=== PATIENT | female | born 1950 | race Caucasian/White ===

== ENCOUNTER 2020-07-20 02:16 | Inpatient (IN) | payer BC, MEDICARE ==
[~2020-07-20] VITALS: Ht 165.1 cm; Wt 76.0 kg
[2020-07-20] VITALS (16 sets, daily range): BP systolic 86–138; BP diastolic 51–98
[2020-07-20] MEDS ORDERED: INFLUENZA VAX SCREEN BY RX. MC PRN (02:45)
[2020-07-20] MEDS ORDERED: PROPOFOL 100 ML IV PRN (03:15)
[2020-07-20 03:50] LABS: BASE EXCESS ABG -1 mmol/L (-3-3); HCO3 ABG 23 mmol/L (21-28); PCO2 ABG 36 mmHg (35-46); PO2 ABG 160 mmHg (65-108); SAT O2 ABG 99 % (92-99)
[2020-07-20 04:03] LABS: FIO2 ABG 40
[2020-07-20 08:23] LABS: BASE EXCESS ABG 1 mmol/L (-3-3); HCO3 ABG 25 mmol/L (21-28); PCO2 ABG 35 mmHg (35-46); PO2 ABG 155 mmHg (65-108); SAT O2 ABG 99 % (92-99)
[2020-07-20 08:34] LABS: FIO2 ABG 40
[2020-07-20 09:12] LABS: BASO # 0.1 x10^3/uL (0.0-0.2); BASO % 1 % (0-3); EOS # 0.1 x10^3/uL (0.0-0.7); EOS % 1 % (0-3); HEMATOCRIT 35.7 % (36.0-47.0); HEMOGLOBIN 11.8 g/dL (12.0-15.5); LYMPH # 2.2 x10^3/uL (1.0-4.8); LYMPH % 27 % (24-48); MEAN CORPUSCULAR HEMOGLOBIN 30 pg (25-35); MEAN CORPUSCULAR HGB CONC 33 g/dL (31-37); MEAN CORPUSCULAR VOLUME 90 fL (79-100); MONO # 0.7 x10^3/uL (0.0-1.1); MONO % 8 % (0-9); NEUT # 5.1 x10^3/uL (1.8-7.7); NEUT % 63 % (31-73); PLATELET COUNT 284 x10^3/uL (140-400); RED BLOOD COUNT 3.99 x10^6/uL (3.50-5.40); RED CELL DISTRIBUTION WIDTH 14.9 % (11.5-14.5); WHITE BLOOD COUNT 8.1 x10^3/uL (4.0-11.0)
[2020-07-20 09:25] LABS: CALCIUM 8.7 mg/dL (8.5-10.1); CREATININE 0.7 mg/dL (0.6-1.0); GFR 83.2; POTASSIUM 4.8 mmol/L (3.5-5.1)
[2020-07-20 09:32] LABS: ALBUMIN 3.3 g/dL (3.4-5.0); ALBUMIN/GLOBULIN RATIO 1.3 (1.0-1.7); TOTAL BILIRUBIN 0.3 mg/dL (0.2-1.0); TOTAL PROTEIN 5.9 g/dL (6.4-8.2)
--- NOTE | 2020-07-20 09:47 | HP ---
ADMIT DATE: 07/20/2020 HISTORY OF PRESENT ILLNESS: The patient is a 70-year-old female patient, who was brought to the Emergency Room of [facility] via EMS after being found unresponsive. She apparently was found lying in her kitchen and the bystanders called EMS. Her blood sugar was 125 mg prior to arrival, IV was established and the patient was given Narcan 2 mg IV x 2 doses prior to arrival with no improvement of her symptoms. On residential care officer arrival, she was not responsive and her oxygen saturation was mid 80s range. She was breathing spontaneously, but had a shallow respiration. Her Randolph coma scale was 3 on arrival. The patient was not responsive to noxious stimuli, did not have any gag reflex. The last known time well is about 5:00 p.m. when she somebody on the phone. No visible signs of injury or trauma. Her pupils on arrival were pinpoint, but equal. The patient was intubated and started on mechanical ventilation. She has had lab work and imaging studies including a CBC, which showed that she has normochromic normocytic anemia with normal white cell count and platelets. Her chemistry was also unremarkable and her blood sugar was 117. Her blood gases on arrival showed a pH of 7.30, pCO2 of 54, pO2 of 329, bicarbonate 26 and oxygen saturation was 100% on FiO2 of 90%. Urinalysis essentially showed large amount of rbc's, trace of leukocyte esterase, 11-20 wbc's, and moderate amount of bacteria. Her toxic screen was positive for benzodiazepine. The patient was transferred to [facility] to continue with mechanical ventilation and to consult the mat machine tender and the neurologist. PAST MEDICAL HISTORY: Unobtainable. PAST SURGICAL HISTORY: Unobtainable. ALLERGIES: Unknown. MEDICATIONS: Unknown at this time of this dictation. FAMILY HISTORY AND SOCIAL HISTORY: Unobtainable. PHYSICAL EXAMINATION: GENERAL: On arrival to the Emergency Room, she was unresponsive with pinpoint pupils and absent gag reflex. Maryanne coma scale was 3. She was obviously intubated, mechanically ventilated. On examining her, she was pale, but no jaundice, cyanosis or thyromegaly. No jugular venous distention. No limb edema. VITAL SIGNS: Her heart rate was 70, blood pressure was 158/88, temperature was 95.1, respiratory rate was 18, and oxygen saturation was 95%. HEAD, EYES, EARS, NOSE AND THROAT: Normocephalic, atraumatic. NECK: Supple. CARDIAC: Normal first and second heart sounds with no gallop or murmur. CHEST: Clear to auscultation. No crepitation or rhonchi. ABDOMEN: Scaphoid, soft, and nontender. NEUROLOGIC: She was Randolph coma scale 3 on arrival. No response to noxious stimuli. No gag reflex. Her arterial blood gases on arrival showed a pH of 7.29, pCO2 of 53, pO2 of 329, and bicarbonate 26. LABORATORY DATA: Showed a white cell count of 8500, hemoglobin 10, hematocrit 32, MCV 91, and platelet count 296,000. Her chemistry showed a serum sodium 138, potassium 4.6, chloride 103, bicarbonate 26, anion gap of 9, BUN 14, and creatinine 0.9. Estimated GFR was 62 mL per minute. Her glucose 117 and calcium was 8.7. Total bilirubin, AST, ALT, and alkaline phosphatase were normal. Total protein 6.2 and albumin 3.3. Her prothrombin time and INR are normal. Urinalysis showed the urine was yellow, hazy with a pH of 7.5, specific gravity 1.020, and small amount of protein. The urine was negative for glucose and ketones. There was large amount of blood, negative for nitrite and bilirubin, trace leukocyte esterase, more than 40 rbc's, 11-20 wbc's, and moderate amount of bacteria. Her toxic screen was negative for opiates, methadone, barbiturates, phencyclidine, amphetamine, methamphetamine and was negative also for cocaine, cannabinoids and alcohol, and was positive for benzodiazepine. ASSESSMENT AND PLAN: In summary, this is a 70-year-old female patient who was basically arrived comatose with a Randolph coma scale of 3. She was intubated and mechanically ventilated. Her chest x-ray showed appropriate position of the endotracheal and enteric tubes, low lung volumes, cannot exclude left basilar airspace disease. CT scan of the head and cervical spine showed that there is no acute intracranial hemorrhage. Jones white matter differentiation is maintained. No mass effect, midline shift or hydrocephalus. No acute abnormality seen to involve the scalp or imaged orbits. Intact calvarium. Partially imaged orogastric and endotracheal tubes. She had reversal of cervical lordosis centered at C5, severe discogenic arthrosis at C5-C6 more so than C4-C5 and C6-C7, grade 1 anterolisthesis of C4 on C5 that is presumably degenerative given the degree of facet degeneration at this level particularly in the left degenerative changes ____ interspace, osseous neural foramina encroachment most severe on the right at C5-C6. Central canal stenosis greatest at C5-C6 that is at least moderate to potentially severe. No acute fracture identified. No prevertebral or dorsal paraspinous hematoma to suggest occult osseous injury. Scattered calcified atherosclerosis and gas posterior to the left clavicle is likely iatrogenic from venipuncture. No apical pneumothorax. So, the patient was intubated, mechanically ventilated, transferred to [facility] ICU to continue mechanical ventilation. We will consult the mat machine tender as well as the neurologist. She apparently was given Narcan twice without any response and did receive 1 gram of IV ceftriaxone and a liter of normal saline. KAREEM FUENTES MD DR: CLIVE/charlene JOB#: [id number] / [id number]
--- NOTE | 2020-07-20 10:31 | RAD ---
Examination: CHEST AP ONLY History: Shortness of breath. Follow-up abnormal chest x-ray. Comparison: None. Findings: AP portable upright frontal view of the chest was obtained. Enteric tube terminates overlying stomach. Tracheal tube appears to terminate approximately 4.8 cm from the josefa. The cardiomediastinal silhouette is normal. Lungs are clear. There is no pneumothorax. No pleural effusion is appreciated. No acute bone abnormality. IMPRESSION: No acute cardiopulmonary process. Resolution of previously evident left basilar atelectasis. Electronically signed by: Lan Gonzalez MD (07/20/2020 10:28 AM) [id number]
--- NOTE | 2020-07-20 13:04 | PDOC2 ---
NEUROLOGY CONSULT Date of Service DOS: DATE: 07/20/20 TIME: 12:54 Reason for Consult Reason for Consult: Coma Referring Physician Referring Physician: Dr. Richardson Source Source: Caregiver (Daughter), Patient History of Present Illness History of Present Illness The patient is a 70-year-old right-handed female, last known well was 5 PM last night when she talked to a relative on the phone. Son tried to reach the patient about 8 PM and there was no response, patient's granddaughter found the patient unresponsive on the floor. Blood glucose was measured at 125. Granddaughter was a bmx rider, noticed low pulse rate and thready pulse. On commissary production supervisor arrival, she remained unresponsive, saturations in the mid 80%, r espirations shallow, pulse thready, Maryanne coma score was 3. They tried giving her Narcan without improvement. Patient was intubated in the [facility] emergency department and then transferred here. There is no history of stroke, seizure, or head injury. Patient is now extubated, bright and alert, free of pain, thinks that she fell because her knee gave out on her. She has been having trouble with the knee for several months. She does not know if she hit her head, basically has no memory except she remembers starting to fall. Past Medical History Cardiovascular: No pertinent hx (Denies hypertension or coronary disease) Musculoskeletal: Osteoarthritis (Knee problems) Endocrine: No pertinent hx (Denies diabetes) Past Surgical History Past Surgical History: No pertinent history Family History Family History: No pertinent hx Social History Social History , lives alone, no alcohol or tobacco Current Medications Current Medications Current Medications Info (FLU VACCINE SCREEN per RX) 1 each PRN DAILY PRN MC SEE COMMENTS; Start 07/20/20 at 02:45 Propofol 100 ml @ 1.253 mls/ hr CONT PRN IV SEE I/O RECORD Last administered on 07/20/20at 04:13; Start 07/20/20 at 03:15 Allergies Allergies: Coded Allergies: Unable to Assess (Unverified , 07/20/20) ROS Review of System Negative for fever, chills, weight loss, shortness of breath, chest pain, indigestion, hematochezia, melena, and dysuria. Full 14-point review of systems is negative. Physical Exam Physical Examination General: Well-developed, well-nourished white female in no acute distress HEENT: Normocephalic andatraumatic. Temporal arteriespulsatile and nontender. Neck: Supple without bruit, no meningismus Musculoskeletal: Stability:see neurologic. Gait exam:see neurologic. Tone:see neurologic.Strength:see neurologic. Neurological: Mental Status:intact, orientation, memory, attention span/concentration, language, fund of knowledge normal. Cranial Nerves:Pupils equal and reactive to light, extraocular movements areintact, visual marshall are full to confrontation. Facial sensation is normal. There is no facial asymmetry. Vestibulo-ocular reflex is intact. Palate elevates and tongue protrudes in midline. All other cranial related problems are negative except as mentioned before.Reflexes:2+ and symmetric with flexor plantar responses. Motor:5/5 strength with normal tone and bulk. Coordination:Finger-nose finger and [id number] testing are normal. Rapid alternating movements and fine finger movements are intact. Gait:Not tested. Sensory:Normal pinprick, vibration, light touch, proprioception. Vitals VITALS Vital Signs Date Time Temp Pulse Resp B/P (MAP) Pulse Ox O2 Delivery O2 Flow Rate FiO2 07/20/20 07:40 100 Ventilator 07/20/20 06:00 58 18 127/77 (94) 07/20/20 02:00 97.3 97.3 Labs Labs Laboratory Tests Test 07/20/20 03:27 07/20/20 07:40 07/20/20 08:50 O2 Saturation 99 % (92-99) 99 % (92-99) Arterial Blood pH 7.42 (7.35-7.45) 7.46 (7.35-7.45) Arterial Blood pCO2 at Patient Temp 36 mmHg (35-46) 35 mmHg (35-46) Arterial Blood pO2 at Patient Temp 160 mmHg (65-108) 155 mmHg (65-108) Arterial Blood HCO3 23 mmol/L (21-28) 25 mmol/L (21-28) Arterial Blood Base Excess -1 mmol/L (-3-3) 1 mmol/L (-3-3) FiO2 40 40 White Blood Count 8.1 x10^3/uL (4.0-11.0) Red Blood Count 3.99 x10^6/uL (3.50-5.40) Hemoglobin 11.8 g/dL (12.0-15.5) Hematocrit 35.7 % (36.0-47.0) Mean Corpuscular Volume 90 fL (79-100) Mean Corpuscular Hemoglobin 30 pg (25-35) Mean Corpuscular Hemoglobin Concent 33 g/dL (31-37) Red Cell Distribution Width 14.9 % (11.5-14.5) Platelet Count 284 x10^3/uL (140-400) Neutrophils (%) (Auto) 63 % (31-73) Lymphocytes (%) (Auto) 27 % (24-48) Monocytes (%) (Auto) 8 % (0-9) Eosinophils (%) (Auto) 1 % (0-3) Basophils (%) (Auto) 1 % (0-3) Neutrophils # (Auto) 5.1 x10^3/uL (1.8-7.7) Lymphocytes # (Auto) 2.2 x10^3/uL (1.0-4.8) Monocytes # (Auto) 0.7 x10^3/uL (0.0-1.1) Eosinophils # (Auto) 0.1 x10^3/uL (0.0-0.7) Basophils # (Auto) 0.1 x10^3/uL (0.0-0.2) Sodium Level 142 mmol/L (136-145) Potassium Level 4.8 mmol/L (3.5-5.1) Chloride Level 106 mmol/L (98-107) Carbon Dioxide Level 30 mmol/L (21-32) Anion Gap 6 (6-14) Blood Urea Nitrogen 12 mg/dL (7-20) Creatinine 0.7 mg/dL (0.6-1.0) Estimated GFR (Cockcroft-Gault) 83.2 BUN/Creatinine Ratio 17 (6-20) Glucose Level 80 mg/dL (70-99) Calcium Level 8.7 mg/dL (8.5-10.1) Total Bilirubin 0.3 mg/dL (0.2-1.0) Aspartate Amino Transf (AST/SGOT) 14 U/L (15-37) Alanine Aminotransferase (ALT/SGPT) 25 U/L (14-59) Alkaline Phosphatase 84 U/L (46-116) Total Protein 5.9 g/dL (6.4-8.2) Albumin 3.3 g/dL (3.4-5.0) Albumin/Globulin Ratio 1.3 (1.0-1.7) Laboratory Tests Test 07/20/20 03:27 07/20/20 07:40 07/20/20 08:50 O2 Saturation 99 % (92-99) 99 % (92-99) Arterial Blood pH 7.42 (7.35-7.45) 7.46 (7.35-7.45) Arterial Blood pCO2 at Patient Temp 36 mmHg (35-46) 35 mmHg (35-46) Arterial Blood pO2 at Patient Temp 160 mmHg (65-108) 155 mmHg (65-108) Arterial Blood HCO3 23 mmol/L (21-28) 25 mmol/L (21-28) Arterial Blood Base Excess -1 mmol/L (-3-3) 1 mmol/L (-3-3) FiO2 40 40 White Blood Count 8.1 x10^3/uL (4.0-11.0) Red Blood Count 3.99 x10^6/uL (3.50-5.40) Hemoglobin 11.8 g/dL (12.0-15.5) Hematocrit 35.7 % (36.0-47.0) Mean Corpuscular Volume 90 fL (79-100) Mean Corpuscular Hemoglobin 30 pg (25-35) Mean Corpuscular Hemoglobin Concent 33 g/dL (31-37) Red Cell Distribution Width 14.9 % (11.5-14.5) Platelet Count 284 x10^3/uL (140-400) Neutrophils (%) (Auto) 63 % (31-73) Lymphocytes (%) (Auto) 27 % (24-48) Monocytes (%) (Auto) 8 % (0-9) Eosinophils (%) (Auto) 1 % (0-3) Basophils (%) (Auto) 1 % (0-3) Neutrophils # (Auto) 5.1 x10^3/uL (1.8-7.7) Lymphocytes # (Auto) 2.2 x10^3/uL (1.0-4.8) Monocytes # (Auto) 0.7 x10^3/uL (0.0-1.1) Eosinophils # (Auto) 0.1 x10^3/uL (0.0-0.7) Basophils # (Auto) 0.1 x10^3/uL (0.0-0.2) Sodium Level 142 mmol/L (136-145) Potassium Level 4.8 mmol/L (3.5-5.1) Chloride Level 106 mmol/L (98-107) Carbon Dioxide Level 30 mmol/L (21-32) Anion Gap 6 (6-14) Blood Urea Nitrogen 12 mg/dL (7-20) Creatinine 0.7 mg/dL (0.6-1.0) Estimated GFR (Cockcroft-Gault) 83.2 BUN/Creatinine Ratio 17 (6-20) Glucose Level 80 mg/dL (70-99) Calcium Level 8.7 mg/dL (8.5-10.1) Total Bilirubin 0.3 mg/dL (0.2-1.0) Aspartate Amino Transf (AST/SGOT) 14 U/L (15-37) Alanine Aminotransferase (ALT/SGPT) 25 U/L (14-59) Alkaline Phosphatase 84 U/L (46-116) Total Protein 5.9 g/dL (6.4-8.2) Albumin 3.3 g/dL (3.4-5.0) Albumin/Globulin Ratio 1.3 (1.0-1.7) Test from [facility] 07/19/20 21:10 07/19/20 22:11 07/19/20 22:36 White Blood Count 8.5 x10^3/uL Red Blood Count 3.58 x10^6/uL Hemoglobin 10.3 g/dL Hematocrit 32.4 % Mean Corpuscular Volume 91 fL Mean Corpuscular Hemoglobin 29 pg Mean Corpuscular Hemoglobin Concent 32 g/dL Red Cell Distribution Width 15.1 % Platelet Count 296 x10^3/uL Neutrophils (%) (Auto) 63 % Lymphocytes (%) (Auto) 25 % Monocytes (%) (Auto) 8 % Eosinophils (%) (Auto) 3 % Basophils (%) (Auto) 1 % Neutrophils # (Auto) 5.4 x10^3uL Lymphocytes # (Auto) 2.1 x10^3/uL Monocytes # (Auto) 0.7 x10^3/uL Eosinophils # (Auto) 0.2 x10^3/uL Basophils # (Auto) 0.1 x10^3/uL Prothrombin Time 9.7 SEC Prothromb Time International Ratio 0.9 Blood Gas pH 7.30 Blood Gas PCO2 54 mmHg Blood Gas PO2 329 mmHg Blood Gas HCO3 26 mmol/L Arterial Bld O2 Saturation (Calc) 100 % FiO2 90 % Creatine Kinase 46 U/L Creatine Kinase MB (Mass) 1.0 ng/mL Creatine Kinase MB Relative Index % Troponin I Quantitative < 0.017 ng/mL [id number] Natriuretic Peptide 102 pg/mL Urine Collection Type Unknown Urine Color Yellow Urine Clarity Hazy Urine pH 7.5 Urine Specific Eleanor 1.020 Urine Protein 30 mg/dl Urine Glucose (UA) Neg mg/dL Urine Ketones (Stick) Neg mg/dL Urine Blood Large Urine Nitrite Neg Urine Bilirubin Neg Urine Urobilinogen Dipstick 0.2 mg/dL Urine Leukocyte Esterase Trace Urine RBC >40 /HPF Urine WBC 11-20 /HPF Urine Squamous Epithelial Cells Few /LPF Urine Bacteria Mod /HPF Urine Opiates Screen Neg Urine Methadone Screen Neg Urine Barbiturates Neg Urine Phencyclidine Screen Neg Urine Amphetamine/Methamphetamine Neg Urine Benzodiazepines Screen Pos Urine Cocaine Screen Neg Urine Cannabinoids Screen Neg Urine Ethyl Alcohol Neg Sodium Level 138 mmol/L Potassium Level 4.6 mmol/L Chloride Level 103 mmol/L Carbon Dioxide Level 26 mmol/L Anion Gap 9 Blood Urea Nitrogen 14 mg/dL Creatinine 0.9 mg/dL Estimated GFR (Cockcroft-Gault) 62.3 BUN/Creatinine Ratio 16 Glucose Level 117 mg/dL Calcium Level 8.7 mg/dL Total Bilirubin Pending Aspartate Amino Transf (AST/SGOT) Pending Alanine Aminotransferase (ALT/SGPT) Pending Alkaline Phosphatase Pending Total Protein Pending Albumin Pending Albumin/Globulin Ratio Pending Images Images CT head: No acute intracranial hemorrhage. Jones-white matter differentiation is maintained. No mass effect, midline shift or hydrocephalus. No acute abnormality seen to involve the scalp or imaged orbits. Intact calvarium. CT cervical spine: Partially imaged orogastric and endotracheal tubes. Reversal of cervical lordosis centered at C5. Severe discogenic arthrosis at C5-C6 more so than C4-C5 and C6-C7. Grade 1 anterolisthesis of C4 on C5 is presumably degenerative given the degree of facet degeneration at this level particularly on the left. Degenerative changes at the atlantodental interface. Osseous neural foraminal encroachment most severe on the right at C5-C6. Central canal stenosis is greatest at C5-C6 that is at least moderate to potentially severe. No acute fracture is identified. No prevertebral or dorsal paraspinous hematoma to suggest occult osseous injury. Scattered calcific atherosclerosis. Gas posterior to the left clavicle is likely iatrogenic from venipuncture. No apical pneumothorax. IMPRESSION: CT head: 1. No acute intracranial abnormality by CT. CT cervical spine: 1. No acute fracture. 2. Advanced multifactorial degenerative changes, as above, collectively greatest at C5-C6 where there is at least moderate to potentially severe central canal stenosis and right more so than left osseous neural foraminal stenosis. Assessment/Plan Assessment/Plan Impression: I do not find a direct neurological cause of this syncope with prolonged loss of consciousness, it sounds like her knee gave out on her and she may have hit her head causing a concussion. She did have hypotension and bradycardia, raising the possibility of a primary cardiac problem. I find no evidence that she had a stroke, transient ischemic attack, or seizure. Her neurological exam is normal now. Recommendations: No additional neurological studies, such as EEG, needed Cardiac work-up Fully discussed with the patient and her daughter. Thank you for letting me help with the patient's care. ISAURO FELICIANO MD Jul 20, 2020 13:04
[2020-07-20] MEDS: ENOXAPARIN 40 MG/0.4 ML SYRINGE. SQ SCH (14:00)
[2020-07-20] MEDS ORDERED: CONTRAST GIVEN. MC PRN (14:15)
[2020-07-20] MEDS ORDERED: IOHEXOL 350 MG/ML 100 ML VIAL. IV ONE (14:15)
--- NOTE | 2020-07-20 14:20 | CONS ---
DATE OF CONSULTATION: 07/20/2020 ATTENDING PHYSICIAN: Juliano Richardson MD REASON FOR CONSULTATION: The patient is seen in pulmonary consultation at the request of Dr. Richardson for respiratory failure, vent management. HISTORY OF PRESENT ILLNESS: The patient is a 70-year-old that was admitted at [facility] in [place] at 8:00 p.m. She was unresponsive. The patient's granddaughter found the patient unresponsive on the floor. Blood glucose was 125. The patient apparently had a very weak pulse. Upon project mgr arrival, she remained unresponsive, saturation of 80%, shallow breathing, [place] coma score was 3. They tried Narcan without significant improvement. She was intubated at [facility] and then transferred to [facility]. The patient, upon my evaluation, was intubated on pressure support. She was following commands, nodded yes to having the tube removed from her airway. She denied any chest pain or pressure. She has been seen by Neurology who recommended no additional neurological studies. Possibly the patient's decreased level of consciousness related to a concussion. Labs were reviewed. White count was normal. Arterial blood gas revealed a pH of 7.42, PaCO2 of 36, pO2 of 102. Electrolytes were noted. BUN and creatinine were noted. Imaging studies included a chest x-ray, which revealed no acute cardiopulmonary process. PAST MEDICAL HISTORY: Otherwise remarkable for osteoarthritis. PAST SURGICAL HISTORY: None. SOCIAL HISTORY: There is no history of alcoholism or tobacco use. REVIEW OF SYSTEMS: Unobtainable secondary to the patient's condition. PHYSICAL EXAMINATION: VITAL SIGNS: Stable. O2 saturation was greater than 92%. LUNGS: Clear. No wheezes. CARDIOVASCULAR: Regular rate and rhythm with S1 and S2. No S3. ABDOMEN: Soft, nontender, nondistended. EXTREMITIES: No clubbing, cyanosis or edema. LABORATORY DATA: Reviewed. White count was noted. Hemoglobin and hematocrit noted. Arterial blood gas was noted. Chest x-ray revealed no acute cardiopulmonary process. IMPRESSION: 1. Acute hypoxemic respiratory failure, etiology unclear. 2. Possible concussion. 3. Negative CT head revealed no acute intracranial process. 4. Negative cervical spine fracture. PLAN: 1. The patient did well on pressure support. We will proceed with extubation. 2. Complete workup with CT angiogram to rule out pulmonary embolism, my clinical suspicion is low. I do appreciate the privilege in sharing in the patient's care. APRIL PAEZ MD DR: AR/charlene JOB#: [id number] / [id number]
--- NOTE | 2020-07-20 15:31 | RAD ---
Examination: CT ANGIOGRAPHY CHEST History: RESP Failure / Spl. Instructions: INJ 100ML OMNI 350 / History: Comparison/Correlation: 07/20/2020 AP view of the chest Findings: Axial images of the chest were obtained following IV contrast according to pulmonary arteriography protocol. Sagittal and coronal reformatted images were provided. Maximum intensity projection images were provided. Thoracic aorta is grossly unremarkable. Pulmonary arterial vasculature are normal with no thromboembolic disease. Left costophrenic sulcus atelectasis is present. Linear discoid atelectasis at the lung bases also seen. A small hiatal hernia is present. No suspicious pulmonary nodule or mass. No enlarged thoracic lymph nodes. There is a 2.6 cm x 2 cm low-attenuation lesion in the left hepatic dome. Hounsfield units are slightly greater than 20. Cholelithiasis suspected. Right renal superior pole nonobstructive calyceal calculus measuring 0.5 cm diameter is present. Additional smaller calculus is present at the right renal superior pole measuring less than 0.3 cm diameter.. Right renal pelvis calculus is partially visualized measuring up to 1 cm diameter. Left renal superior pole 1 cm x 0.8 cm mildly complex density structure is present. This may represent hemorrhagic or proteinaceous cyst although more significant etiology is not excluded. Accessory right renal artery present. Impression: No PE. Mild discoid atelectasis. Nonobstructive right renal calculi. Left renal lesion which may represent complex cyst. Slightly high density left hepatic lobe cyst. Further evaluation with ultrasound exam should be considered. Cholelithiasis is suspected. PQRS Compliance Statement: One or more of the following individualized dose reduction techniques were utilized for this examination: 1. Automated exposure control 2. Adjustment of the mA and/or kV according to patient size 3. Use of iterative reconstruction technique Electronically signed by: Lan Gonzalez MD (07/20/2020 3:28 PM) [id number]
--- NOTE | 2020-07-20 15:34 | NUR ---
SS following for discharge planning. SS reviewed pt chart and discussed with pt RN. Pt is from home and is currently requiring oxygen. SS will continue to follow for discharge planning.
[2020-07-20] MEDS: IPRATRPIUM/ALBUTEROL 0.5/2.5MG 3 ML NEBU. NEB SCH ×2 (15:45→20:28)
[2020-07-20] MEDS: AMOXICILLIN/K CLAV 875/125MG TABLET. PO SCH (18:00)
--- NOTE | 2020-07-20 20:53 | NUR ---
Extubation trial well tolerated.O2 at 3 lNC w/o overt resp distress post ETT removal.Menation clear but recollection of events prior to admission escape her memory. To and ffrom Ct .Test neg for PE. OT/PT addressed and ordered. Able to transfer to stepdown unit w clear mentation. Daughter informed of transfer to second floor
[2020-07-20] MEDS: FAMOTIDINE 20 MG/2 ML VIAL IVP SCH (21:04)
[2020-07-21] VITALS (7 sets, daily range): BP systolic 133–196; BP diastolic 67–83
[2020-07-21] MEDS: IPRATRPIUM/ALBUTEROL 0.5/2.5MG 3 ML NEBU. NEB SCH ×4 (07:57→20:26)
[2020-07-21] MEDS: AMOXICILLIN/K CLAV 875/125MG TABLET. PO SCH ×2 (08:50→20:44)
[2020-07-21] MEDS: LACTOBACILLUS RHAMNOSUS GG 1 CAPSULE. PO SCH ×2 (08:50→20:44)
[2020-07-21] MEDS: FAMOTIDINE 20 MG/2 ML VIAL IVP SCH (08:51)
[2020-07-21] MEDS: ACETAMINOPHEN 325 MG TABLET. PO PRN (11:30)
--- NOTE | 2020-07-21 11:43 | PDOC ---
PULMONARY PROGRESS NOTES DATE: 07/21/20 TIME: 11:40 Subjective Patient was extubated on 07/20/2020 now on room air Denies any shortness of breath, chest pain or increased cough, reports a very mild nonproductive cough No overnight concerns from nursing Vitals Vital Signs Date Time Temp Pulse Resp B/P (MAP) Pulse Ox O2 Delivery O2 Flow Rate FiO2 07/21/20 11:00 98.0 72 20 182/79 (113) 95 Room Air 98.0 07/20/20 16:00 3.0 ROS: No Nausea, No Chest Pain, No Abdominal Pain, No Increase Cough General: Alert Lungs: Clear Cardiovascular: S1, S2 Abdomen: Soft, Non-tender Neuro Exam: Alert Extremities: No Edema Skin: Warm Labs Laboratory Tests Test 07/20/20 03:27 07/20/20 07:40 07/20/20 08:50 O2 Saturation 99 % (92-99) 99 % (92-99) Arterial Blood pH 7.42 (7.35-7.45) 7.46 (7.35-7.45) Arterial Blood pCO2 at Patient Temp 36 mmHg (35-46) 35 mmHg (35-46) Arterial Blood pO2 at Patient Temp 160 mmHg (65-108) 155 mmHg (65-108) Arterial Blood HCO3 23 mmol/L (21-28) 25 mmol/L (21-28) Arterial Blood Base Excess -1 mmol/L (-3-3) 1 mmol/L (-3-3) FiO2 40 40 White Blood Count 8.1 x10^3/uL (4.0-11.0) Red Blood Count 3.99 x10^6/uL (3.50-5.40) Hemoglobin 11.8 g/dL (12.0-15.5) Hematocrit 35.7 % (36.0-47.0) Mean Corpuscular Volume 90 fL (79-100) Mean Corpuscular Hemoglobin 30 pg (25-35) Mean Corpuscular Hemoglobin Concent 33 g/dL (31-37) Red Cell Distribution Width 14.9 % (11.5-14.5) Platelet Count 284 x10^3/uL (140-400) Neutrophils (%) (Auto) 63 % (31-73) Lymphocytes (%) (Auto) 27 % (24-48) Monocytes (%) (Auto) 8 % (0-9) Eosinophils (%) (Auto) 1 % (0-3) Basophils (%) (Auto) 1 % (0-3) Neutrophils # (Auto) 5.1 x10^3/uL (1.8-7.7) Lymphocytes # (Auto) 2.2 x10^3/uL (1.0-4.8) Monocytes # (Auto) 0.7 x10^3/uL (0.0-1.1) Eosinophils # (Auto) 0.1 x10^3/uL (0.0-0.7) Basophils # (Auto) 0.1 x10^3/uL (0.0-0.2) Sodium Level 142 mmol/L (136-145) Potassium Level 4.8 mmol/L (3.5-5.1) Chloride Level 106 mmol/L (98-107) Carbon Dioxide Level 30 mmol/L (21-32) Anion Gap 6 (6-14) Blood Urea Nitrogen 12 mg/dL (7-20) Creatinine 0.7 mg/dL (0.6-1.0) Estimated GFR (Cockcroft-Gault) 83.2 BUN/Creatinine Ratio 17 (6-20) Glucose Level 80 mg/dL (70-99) Calcium Level 8.7 mg/dL (8.5-10.1) Total Bilirubin 0.3 mg/dL (0.2-1.0) Aspartate Amino Transf (AST/SGOT) 14 U/L (15-37) Alanine Aminotransferase (ALT/SGPT) 25 U/L (14-59) Alkaline Phosphatase 84 U/L (46-116) Total Protein 5.9 g/dL (6.4-8.2) Albumin 3.3 g/dL (3.4-5.0) Albumin/Globulin Ratio 1.3 (1.0-1.7) Impression . IMPRESSION: 1. Acute hypoxemic respiratory failure, etiology unclear. 2. Possible concussion. 3. Negative CT head revealed no acute intracranial process. 4. Negative cervical spine fracture. Plan . PLAN: Supplemental oxygen as needed, currently on room air Symptomatic treatment of cough Is at bedside Continue Augmentin About a bed as tolerated W/ PT/OT CTA of chest reviewed negative for pulmonary embolism Bronchodilators as needed DVT/GI prophylaxis Patient could discharge in the next 24 to 48 hours, we will sign off at this time as the patient is stable from a pulmonary standpoint please call with any questions or concerns thank you APRIL PAEZ MD Jul 21, 2020 11:43
--- NOTE | 2020-07-21 12:27 | PN ---
DATE: 07/21/2020 SUBJECTIVE: The patient is resting, slightly propped up in bed, in no apparent respiratory distress. She is awake, alert. On questioning her, she denied any complaints. She apparently lives alone, but her granddaughter visits her very often and she is the one who found her on the floor, bradycardic and hypotensive. She cannot remember exactly the circumstances of her fall and loss of consciousness, but said that her knee has been bothering her for the last 3 weeks and has been giving way and she has also some pain in his right knee that comes and goes. She has no significant medical problem. She follows at the outpatient clinic in [facility], Leigh Ann Freeman is her primary care physician and she is on gabapentin, naproxen as well as tramadol. She said she took some tramadol on the day of her loss of consciousness. PHYSICAL EXAMINATION: GENERAL: When I examined her this morning, she looked well and was clearly in no apparent respiratory distress. She was somewhat pale, but no jaundice or cyanosis. No lymphadenopathy, no thyromegaly. No jugular venous distention. No limb edema. VITAL SIGNS: Her heart rate was 77, blood pressure was 168/76, temperature was 98.2, respiratory rate was 21 and oxygen saturation was 95%. HEAD, EYES, EARS, NOSE, AND THROAT: Normocephalic, atraumatic. NECK: Supple. HEART: Normal first and second heart sounds. No gallop or murmur. CHEST: Clear to auscultation. No crepitation or rhonchi. ABDOMEN: Distended, soft, nontender. No guarding or rigidity. No organomegaly. All hernial orifices are intact. Bowel sounds normal. NEUROLOGIC: She was awake, alert, responding appropriately. All her cranial nerves are intact. She moves her extremities without difficulty. She actually ambulates without assistance or assistive devices. Her intake over the last 24 hours was incompletely recorded. LABORATORY DATA: As of yesterday showed a white cell count of 8000, hemoglobin 12, hematocrit 36, MCV 90 and platelet count of 284,000. Her chemistry showed a serum sodium 142, potassium 4.8, chloride 106, bicarbonate 30, anion gap of 6, BUN 12, creatinine 0.7, estimated GFR was 83 mL per minute, glucose was 80, calcium was 8.7. Total bilirubin, AST, ALT, alkaline phosphatase were normal. Total protein was 5.9, albumin was 3.3. ASSESSMENT AND RECOMMENDATIONS: This is a 70-year-old female patient who was admitted with loss of consciousness and acute hypoxic respiratory failure, her Maryanne coma scale was 3 and therefore, she was unable to protect her airways and was intubated and mechanically ventilated. Narcan was given without any significant improvement. She was seen by Dr. Dickson who did not feel that the patient has any neurological explanation for her loss of consciousness and recommended further workup by the Cardiology perhaps some form of arrhythmias. We did consult the cardiology team. Meanwhile, I will arrange for her to have an x-ray of her right knee joint and consult Dr. Henderson for further evaluation and treatment. KAREEM FUENTES MD DR: CLIVE/charlene JOB#: [id number] / [id number]
--- NOTE | 2020-07-21 13:27 | PDOC2 ---
CONSULT Date of Consult Date of Consult DATE: 07/21/20 TIME: 13:23 Reason for Consult Reason for Consult: Patient was found nonresponsive. Referring Physician Referring Physician: Dr. Richardson Identification/Chief Complaint Chief Complaint Unresponsiveness Source Source: Chart review, Patient History of Present Illness Reason for Visit: The patient is a 70-year-old female who was found unresponsive at home yesterday. Paramedics were called. Patient was intubated by paramedics due to her nonresponsiveness. No report of chest pain was made. Lab tested positive for benzodiazepines. Patient was transported to [facility]. She was extubated overnight and this morning is resting comfortably in bed. She denies chest pain or shortness of breath. She responds appropriately to questions. She denies any history of coronary disease congestive heart failure or cardiac arrhythmias. CT scan of the head has shown no acute abnormalities. Chest CTA showed no PE. She has been reviewed by the neurology service as well as pulmonary. Past Medical History Cardiovascular: No pertinent hx (Denies hypertension or coronary disease) Musculoskeletal: Osteoarthritis (Knee problems) Endocrine: No pertinent hx (Denies diabetes) Past Surgical History Past Surgical History: No pertinent history Family History Family History: Hypertension Social History No ALCOHOL: none Current Medications Current Medications Current Medications Info (FLU VACCINE SCREEN per RX) 1 each PRN DAILY PRN MC SEE COMMENTS; Start 07/20/20 at 02:45; Status Cancel Propofol 100 ml @ 1.253 mls/ hr CONT PRN IV SEE I/O RECORD Last administered on 07/20/20at 04:13; Start 07/20/20 at 03:15; Stop 07/20/20 at 20:18; Status DC Enoxaparin Sodium (Lovenox 40mg Syringe) 40 mg Q24H SQ Last administered on 07/20/20at 14:00; Start 07/20/20 at 14:00 Famotidine (Pepcid Vial) 20 mg BID IVP Last administered on 07/21/20at 08:51; Start 07/20/20 at 21:00; Stop 07/21/20 at 12:00; Status DC Amoxicillin/ Clavulanate Potassium (Augmentin 875/ 125mg) 1 tab BID PO Last administered on 07/21/20at 08:50; Start 07/20/20 at 18:00 Albuterol/ Ipratropium (Duoneb) 3 ml RTQID NEB Last administered on 07/21/20at 11:45; Start 07/20/20 at 16:00 Iohexol (Omnipaque 350 Mg/ml) 100 ml 1X ONCE IV Last administered on 07/20/20at 14:15; Start 07/20/20 at 14:15; Stop 07/20/20 at 14:16; Status DC Info (CONTRAST GIVEN -- Rx MONITORING) 1 each PRN DAILY PRN MC SEE COMMENTS; Start 07/20/20 at 14:15; Stop 07/22/20 at 14:14 Influenza Virus Vaccine Quadrival (Fluzone Quad [id number] Syringe) 0.5 ml ONCE ONCE VAX IM ; Start 07/22/20 at 09:00; Stop 07/22/20 at 09:01 Lactobacillus Rhamnosus (Culturelle) 1 cap BID PO Last administered on 07/21/20at 08:50; Start 07/21/20 at 09:00 Famotidine (Pepcid) 20 mg BID PO ; Start 07/21/20 at 21:00 Acetaminophen (Tylenol) 650 mg PRN Q4HRS PRN PO PAIN Last administered on 07/21at 11:30; Start 07/21/20 at 11:00 Allergies Allergies: Coded Allergies: No Known Drug Allergies (Unverified , 07/21/20) ROS General: YES: Other (Episode of nonresponsiveness as above) Physical Exam General: No acute distress HEENT: Atraumatic Lungs: Clear to auscultation Heart: Regular rate Abdomen: Normal bowel sounds Vitals VITALS Vital Signs Date Time Temp Pulse Resp B/P (MAP) Pulse Ox O2 Delivery O2 Flow Rate FiO2 07/21/20 11:45 95 Room Air 07/21/20 11:00 98.0 72 20 182/79 (113) 98.0 07/20/20 16:00 3.0 Labs Labs Laboratory Tests Test 07/20/20 03:27 07/20/20 07:40 07/20/20 08:50 O2 Saturation 99 % (92-99) 99 % (92-99) Arterial Blood pH 7.42 (7.35-7.45) 7.46 (7.35-7.45) Arterial Blood pCO2 at Patient Temp 36 mmHg (35-46) 35 mmHg (35-46) Arterial Blood pO2 at Patient Temp 160 mmHg (65-108) 155 mmHg (65-108) Arterial Blood HCO3 23 mmol/L (21-28) 25 mmol/L (21-28) Arterial Blood Base Excess -1 mmol/L (-3-3) 1 mmol/L (-3-3) FiO2 40 40 White Blood Count 8.1 x10^3/uL (4.0-11.0) Red Blood Count 3.99 x10^6/uL (3.50-5.40) Hemoglobin 11.8 g/dL (12.0-15.5) Hematocrit 35.7 % (36.0-47.0) Mean Corpuscular Volume 90 fL (79-100) Mean Corpuscular Hemoglobin 30 pg (25-35) Mean Corpuscular Hemoglobin Concent 33 g/dL (31-37) Red Cell Distribution Width 14.9 % (11.5-14.5) Platelet Count 284 x10^3/uL (140-400) Neutrophils (%) (Auto) 63 % (31-73) Lymphocytes (%) (Auto) 27 % (24-48) Monocytes (%) (Auto) 8 % (0-9) Eosinophils (%) (Auto) 1 % (0-3) Basophils (%) (Auto) 1 % (0-3) Neutrophils # (Auto) 5.1 x10^3/uL (1.8-7.7) Lymphocytes # (Auto) 2.2 x10^3/uL (1.0-4.8) Monocytes # (Auto) 0.7 x10^3/uL (0.0-1.1) Eosinophils # (Auto) 0.1 x10^3/uL (0.0-0.7) Basophils # (Auto) 0.1 x10^3/uL (0.0-0.2) Sodium Level 142 mmol/L (136-145) Potassium Level 4.8 mmol/L (3.5-5.1) Chloride Level 106 mmol/L (98-107) Carbon Dioxide Level 30 mmol/L (21-32) Anion Gap 6 (6-14) Blood Urea Nitrogen 12 mg/dL (7-20) Creatinine 0.7 mg/dL (0.6-1.0) Estimated GFR (Cockcroft-Gault) 83.2 BUN/Creatinine Ratio 17 (6-20) Glucose Level 80 mg/dL (70-99) Calcium Level 8.7 mg/dL (8.5-10.1) Total Bilirubin 0.3 mg/dL (0.2-1.0) Aspartate Amino Transf (AST/SGOT) 14 U/L (15-37) Alanine Aminotransferase (ALT/SGPT) 25 U/L (14-59) Alkaline Phosphatase 84 U/L (46-116) Total Protein 5.9 g/dL (6.4-8.2) Albumin 3.3 g/dL (3.4-5.0) Albumin/Globulin Ratio 1.3 (1.0-1.7) Images Images Chest CTA and head CTA as above Assessment/Plan Assessment/Plan 1. Episodes of nonresponsiveness. Patient was intubated by paramedics. She was extubated overnight. She is now alert and oriented. Lab testing does show positive test for benzo but diazepam. No acute ischemic EKG changes and no arrhythmias overnight. No previous history of similar episodes. Patient has been seen by both pulmonology and neurology services. From a cardiac viewpoint no arrhythmias are present. We will continue on monitoring. We will check an echocardiogram. Will check cardiac enzymes. Patient will be a candidate for out patient monitoring. 2. Status post intubation. Patient denies shortness of breath at this time. SHARYN ATWOOD MD Jul 21, 2020 13:27
[2020-07-21] MEDS: ENOXAPARIN 40 MG/0.4 ML SYRINGE. SQ SCH (14:08)
--- NOTE | 2020-07-21 14:12 | RAD ---
Exam performed: Right knee 3 views. HISTORY: Pain and swelling, recurrent falls. DATE OF SERVICE: 07/21/2020. COMPARISON: None available FINDINGS: AP, lateral and oblique views of the right knee are obtained. There is narrowing of the patellofemoral joint with osteophytic spurring. The medial and lateral tibiofemoral joints of preserved. There is no acute fracture or dislocation. No soft tissue swelling or foreign body seen. IMPRESSION: Degenerative arthrosis involving the patellofemoral joint. No acute abnormality seen. Electronically signed by: Oralia Mejía MD (07/21/2020 2:09 PM) [id number]
[2020-07-21] MEDS ORDERED: NICOTINE 14MG PATCH. TD PRN (14:30)
--- NOTE | 2020-07-21 15:16 | PDOC ---
PROGRESS NOTES Date of Service DATE: 07/21/20 TIME: 15:15 Assessment I do not find a direct neurological cause of this syncope with prolonged loss of consciousness, it sounds like her knee gave out on her and she may have hit her head causing a concussion. She did have hypotension and bradycardia, raising the possibility of a primary cardiac problem. I find no evidence that she had a stroke, transient ischemic attack, or seizure. Her neurological exam is normal now. Plan No additional neurological studies, such as EEG, needed Cardiac work-up Subjective Feels fine now, no dizziness Objective Vital Signs Date Time Temp Pulse Resp B/P (MAP) Pulse Ox O2 Delivery O2 Flow Rate FiO2 07/21/20 11:45 95 Room Air 07/21/20 11:00 98.0 72 20 182/79 (113) 98.0 07/20/20 16:00 3.0 Intake and Output 07/21/20 07:00 Intake Total 675 ml Output Total 930 ml Balance -255 ml Intake Oral 650 ml IV Total 25 ml Output Urine Total 930 ml PHYSICAL EXAM Alert. Oriented to time, place and person. PERRL. EOMI. CN: no focal findings. Muscle tone: normal. Muscle strength: 5/5 DTR: 2+ Plantar reflex: flexor Gait: not examined in bed. Sensory exam: no abnormal findings. No cerebellar signs elicited. Review of Relevant I have reviewed the following items russ (where applicable) has been applied. Labs Laboratory Tests Test 07/20/20 03:27 07/20/20 07:40 07/20/20 08:50 O2 Saturation 99 % (92-99) 99 % (92-99) Arterial Blood pH 7.42 (7.35-7.45) 7.46 (7.35-7.45) Arterial Blood pCO2 at Patient Temp 36 mmHg (35-46) 35 mmHg (35-46) Arterial Blood pO2 at Patient Temp 160 mmHg (65-108) 155 mmHg (65-108) Arterial Blood HCO3 23 mmol/L (21-28) 25 mmol/L (21-28) Arterial Blood Base Excess -1 mmol/L (-3-3) 1 mmol/L (-3-3) FiO2 40 40 White Blood Count 8.1 x10^3/uL (4.0-11.0) Red Blood Count 3.99 x10^6/uL (3.50-5.40) Hemoglobin 11.8 g/dL (12.0-15.5) Hematocrit 35.7 % (36.0-47.0) Mean Corpuscular Volume 90 fL (79-100) Mean Corpuscular Hemoglobin 30 pg (25-35) Mean Corpuscular Hemoglobin Concent 33 g/dL (31-37) Red Cell Distribution Width 14.9 % (11.5-14.5) Platelet Count 284 x10^3/uL (140-400) Neutrophils (%) (Auto) 63 % (31-73) Lymphocytes (%) (Auto) 27 % (24-48) Monocytes (%) (Auto) 8 % (0-9) Eosinophils (%) (Auto) 1 % (0-3) Basophils (%) (Auto) 1 % (0-3) Neutrophils # (Auto) 5.1 x10^3/uL (1.8-7.7) Lymphocytes # (Auto) 2.2 x10^3/uL (1.0-4.8) Monocytes # (Auto) 0.7 x10^3/uL (0.0-1.1) Eosinophils # (Auto) 0.1 x10^3/uL (0.0-0.7) Basophils # (Auto) 0.1 x10^3/uL (0.0-0.2) Sodium Level 142 mmol/L (136-145) Potassium Level 4.8 mmol/L (3.5-5.1) Chloride Level 106 mmol/L (98-107) Carbon Dioxide Level 30 mmol/L (21-32) Anion Gap 6 (6-14) Blood Urea Nitrogen 12 mg/dL (7-20) Creatinine 0.7 mg/dL (0.6-1.0) Estimated GFR (Cockcroft-Gault) 83.2 BUN/Creatinine Ratio 17 (6-20) Glucose Level 80 mg/dL (70-99) Calcium Level 8.7 mg/dL (8.5-10.1) Total Bilirubin 0.3 mg/dL (0.2-1.0) Aspartate Amino Transf (AST/SGOT) 14 U/L (15-37) Alanine Aminotransferase (ALT/SGPT) 25 U/L (14-59) Alkaline Phosphatase 84 U/L (46-116) Total Protein 5.9 g/dL (6.4-8.2) Albumin 3.3 g/dL (3.4-5.0) Albumin/Globulin Ratio 1.3 (1.0-1.7) Medications Current Medications Info (FLU VACCINE SCREEN per RX) 1 each PRN DAILY PRN MC SEE COMMENTS; Start 07/20/20 at 02:45; Status Cancel Propofol 100 ml @ 1.253 mls/ hr CONT PRN IV SEE I/O RECORD Last administered on 07/20/20at 04:13; Start 07/20/20 at 03:15; Stop 07/20/20 at 20:18; Status DC Enoxaparin Sodium (Lovenox 40mg Syringe) 40 mg Q24H SQ Last administered on 07/21/20at 14:08; Start 07/20/20 at 14:00 Famotidine (Pepcid Vial) 20 mg BID IVP Last administered on 07/21/20at 08:51; Start 07/20/20 at 21:00; Stop 07/21/20 at 12:00; Status DC Amoxicillin/ Clavulanate Potassium (Augmentin 875/ 125mg) 1 tab BID PO Last administered on 07/21/20at 08:50; Start 07/20/20 at 18:00 Albuterol/ Ipratropium (Duoneb) 3 ml RTQID NEB Last administered on 07/21/20at 11:45; Start 07/20/20 at 16:00 Iohexol (Omnipaque 350 Mg/ml) 100 ml 1X ONCE IV Last administered on 07/20/20at 14:15; Start 07/20/20 at 14:15; Stop 07/20/20 at 14:16; Status DC Info (CONTRAST GIVEN -- Rx MONITORING) 1 each PRN DAILY PRN MC SEE COMMENTS; Start 07/20/20 at 14:15; Stop 07/22/20 at 14:14 Influenza Virus Vaccine Quadrival (Fluzone Quad Syringe) 0.5 ml ONCE ONCE VAX IM ; Start 07/22/20 at 09:00; Stop 07/22/20 at 09:01 Lactobacillus Rhamnosus (Culturelle) 1 cap BID PO Last administered on 07/21/20at 08:50; Start 07/21/20 at 09:00 Famotidine (Pepcid) 20 mg BID PO ; Start 07/21/20 at 21:00 Acetaminophen (Tylenol) 650 mg PRN Q4HRS PRN PO PAIN Last administered on 07/21/20at 11:30; Start 07/21/20 at 11:00 Nicotine (Nicoderm Cq 14mg) 1 patch PRN DAILY PRN TD SMOKING CESSATION; Start 07/21/20 at 14:30 Vitals/I & O Vital Sign - Last 24 Hours 07/20/20 07/20/20 07/20/20 07/20/20 15:45 16:00 16:00 19:50 Temp 97.9 98.9 97.9 98.9 Pulse 61 75 Resp 12 22 B/P (MAP) 132/69 (90) 138/65 (89) Pulse Ox 100 98 95 O2 Delivery Nasal Cannula Nasal Cannula Nasal Cannula Room Air O2 Flow Rate 2.0 3.0 3.0 07/20/20 07/20/20 07/20/20 07/21/20 19:50 20:26 23:20 03:15 Temp 98.6 98.6 98.6 98.6 Pulse 76 73 Resp 16 18 B/P (MAP) 137/98 (111) 137/67 (90) Pulse Ox 96 98 90 O2 Delivery Room Air Room Air Room Air Room Air 07/21/20 07/21/20 07/21/20 07/21/20 07:00 07:57 08:00 11:00 Temp 98.2 98.0 98.2 98.0 Pulse 77 72 Resp 21 20 B/P (MAP) 168/76 (106) 182/79 (113) Pulse Ox 93 95 95 O2 Delivery Room Air Room Air Room Air Room Air 07/21/20 11:45 Pulse Ox 95 O2 Delivery Room Air Intake and Output 07/20/20 07/20/20 07/21/20 15:00 23:00 07:00 Intake Total 25 ml 650 ml Output Total 930 ml Balance 25 ml -280 ml Justicifation of Admission Dx: Justifications for Admission: Justification of Admission Dx: N/A ISAURO FELICIANO MD Jul 21, 2020 15:16
[2020-07-21] MEDS ORDERED: amLODIPine BESYLATE 5 MG TABLET PO ONE (19:45)
[2020-07-21] MEDS: FAMOTIDINE 20 MG TABLET. PO SCH (20:44)
[2020-07-22] VITALS (7 sets, daily range): BP systolic 112–189; BP diastolic 66–84
[2020-07-22] MEDS: NITROGLYCERIN OINT 1 GM PACKET. TP SCH ×5 (01:18→23:46)
[2020-07-22 05:02] LABS: HEMATOCRIT 34.3 % (36.0-47.0); HEMOGLOBIN 11.5 g/dL (12.0-15.5); RED BLOOD COUNT 3.87 x10^6/uL (3.50-5.40); WHITE BLOOD COUNT 7.8 x10^3/uL (4.0-11.0)
[2020-07-22 05:36] LABS: MAGNESIUM 1.9 mg/dL (1.8-2.4)
[2020-07-22 05:37] LABS: CHOLESTEROL/HDL RATIO 2.8
[2020-07-22 05:38] LABS: ALBUMIN 3.1 g/dL (3.4-5.0); ALBUMIN/GLOBULIN RATIO 0.9 (1.0-1.7); CALCIUM 8.9 mg/dL (8.5-10.1); CREATININE 0.7 mg/dL (0.6-1.0); GFR 83.2; POTASSIUM 3.5 mmol/L (3.5-5.1); TOTAL BILIRUBIN 0.3 mg/dL (0.2-1.0); TOTAL PROTEIN 6.6 g/dL (6.4-8.2)
[2020-07-22] MEDS: IPRATRPIUM/ALBUTEROL 0.5/2.5MG 3 ML NEBU. NEB SCH ×4 (07:55→19:54)
[2020-07-22] MEDS: ACETAMINOPHEN 325 MG TABLET. PO PRN (08:19)
[2020-07-22] MEDS: AMOXICILLIN/K CLAV 875/125MG TABLET. PO SCH ×2 (08:19→20:27)
[2020-07-22] MEDS: FAMOTIDINE 20 MG TABLET. PO SCH ×2 (08:19→20:27)
[2020-07-22] MEDS: LACTOBACILLUS RHAMNOSUS GG 1 CAPSULE. PO SCH ×2 (08:20→20:27)
[2020-07-22] MEDS ORDERED: FLU VACC QS 2020-21(6MOS+)/PF 0.5 ML SYRINGE. VAX IM ONE (09:00)
[2020-07-22] MEDS: amLODIPine BESYLATE 5 MG TABLET PO SCH (11:12)
--- NOTE | 2020-07-22 13:10 | PN ---
DATE: 07/22/2020 SUBJECTIVE: The patient is resting, slightly propped up in bed, in no apparent distress. She denied any complaint. Nursing staff did not voice any concern, in particular, no further episode of loss of consciousness and no arrhythmias noted with her alicia or tachyarrhythmia or high-grade heart block. She was seen by the excellence coach and neurologist and she was extubated and maintaining her oxygen saturation at 96% on room air. She is scheduled for an echocardiogram this morning and probably outpatient monitoring when she gets home. When I examined her this morning, she continued to have slightly elevated blood pressure. Otherwise, she remained hemodynamically stable. PHYSICAL EXAMINATION: GENERAL: When I examined her, she was somewhat pale, not jaundiced, cyanosis or thyromegaly. No jugular venous distention. No lower limb edema. VITAL SIGNS: Her heart rate was 78, blood pressure was 176/80, temperature was 98.3, respiratory rate was 20, and oxygen saturation was 97% on room air. HEAD, EYES, EARS, NOSE AND THROAT: Showed normocephalic, atraumatic. NECK: Supple. HEART: Showed normal first and second heart sounds. No gallop, rub or murmur. CHEST: Clear to auscultation. No crepitation or rhonchi. ABDOMEN: Distended, soft, nontender. NEUROLOGIC: She is grossly intact. Her intake over the last 24 hours was 675, output was 930. LABORATORY DATA: As of this morning, her white cell count was 7800, hemoglobin 11.5, hematocrit 34, MCV 89 and platelet count 278,000. Her chemistry showed a serum sodium 140, potassium 3.5, chloride 103, bicarbonate 27, anion gap of 10, BUN 7, creatinine 0.7, estimated GFR was 83 mL per minute. Her glucose 114, calcium was 8.9, magnesium was 1.9. Total bilirubin, AST, ALT, alkaline phosphatase were normal. Total protein 6.6, albumin 3.1. Her serum triglycerides were 72, total cholesterol was 212, LDL was 121, VLDL was 14, HDL was 77 and the ratio was 2.8. ASSESSMENT AND PLAN: 1. A 70-year-old female patient admitted with loss of consciousness and acute hypoxic respiratory failure. Her Maryanne coma scale on arrival was 3 and therefore, she was unable to protect her airways and was intubated and mechanically ventilated. Narcan was given without any significant improvement. 2. She was seen by Dr. Dickson, who did not feel that the patient has any neurological explanation for her loss of consciousness and recommended further workup by the Cardiology. 3. She was seen in consultation by Cardiology team and she is scheduled for an echocardiogram and probably outpatient monitoring. 4. She has pain in her right knee joint for which I did consult Dr. Henderson for further evaluation and treatment. KAREEM FUENTES MD DR: CLIVE/charlene JOB#: [id number] / [id number]
--- NOTE | 2020-07-22 14:52 | PDOC ---
PROGRESS NOTES Date of Service DATE: 07/22/20 TIME: 14:50 Subjective Subjective Patient seen and examined Objective Objective Vital Signs Date Time Temp Pulse Resp B/P (MAP) Pulse Ox O2 Delivery O2 Flow Rate FiO2 07/22/20 12:04 177/81 (113) 07/22/20 11:12 71 07/22/20 11:11 97 Room Air 07/22/20 11:00 98.2 21 98.2 07/20/20 16:00 3.0 l Intake and Output 07/22/20 07:00 Intake Total 450 ml Output Total 800 ml Balance -350 ml Intake Oral 450 ml Output Urine Total 800 ml # Voids 3 Physical Exam Abdomen: Normal bowel sounds Heart: Regular rate General: No acute distress Lungs: Other (Slightly decreased breath sounds) Assessment Assessment 1. Episodes of nonresponsiveness. Patient was intubated by paramedics. She was extubated overnight. She continues to be alert and oriented. Lab testing as above. No ischemic EKG changes and no arrhythmias. We will continue present treatment. Echocardiogram today. Patient will be a candidate for out patient monitoring. 2. Status post intubation. Patient denies shortness of breath. Work-up as abo ve. Comment Review of Relevant I have reviewed the following items russ (where applicable) has been applied. Labs Laboratory Tests Test 07/21/20 16:00 07/22/20 04:55 Troponin I Quantitative < 0.017 ng/mL (0.000-0.055) White Blood Count 7.8 x10^3/uL (4.0-11.0) Red Blood Count 3.87 x10^6/uL (3.50-5.40) Hemoglobin 11.5 g/dL (12.0-15.5) Hematocrit 34.3 % (36.0-47.0) Mean Corpuscular Volume 89 fL (79-100) Mean Corpuscular Hemoglobin 30 pg (25-35) Mean Corpuscular Hemoglobin Concent 34 g/dL (31-37) Red Cell Distribution Width 15.0 % (11.5-14.5) Platelet Count 278 x10^3/uL (140-400) Sodium Level 140 mmol/L (136-145) Potassium Level 3.5 mmol/L (3.5-5.1) Chloride Level 103 mmol/L (98-107) Carbon Dioxide Level 27 mmol/L (21-32) Anion Gap 10 (6-14) Blood Urea Nitrogen 7 mg/dL (7-20) Creatinine 0.7 mg/dL (0.6-1.0) Estimated GFR (Cockcroft-Gault) 83.2 BUN/Creatinine Ratio 10 (6-20) Glucose Level 114 mg/dL (70-99) Calcium Level 8.9 mg/dL (8.5-10.1) Magnesium Level 1.9 mg/dL (1.8-2.4) Total Bilirubin 0.3 mg/dL (0.2-1.0) Aspartate Amino Transf (AST/SGOT) 12 U/L (15-37) Alanine Aminotransferase (ALT/SGPT) 20 U/L (14-59) Alkaline Phosphatase 74 U/L (46-116) Total Protein 6.6 g/dL (6.4-8.2) Albumin 3.1 g/dL (3.4-5.0) Albumin/Globulin Ratio 0.9 (1.0-1.7) Triglycerides Level 72 mg/dL (0-150) Cholesterol Level 212 mg/dL (0-200) LDL Cholesterol, Calculated 121 mg/dL (0-100) VLDL Cholesterol, Calculated 14 mg/dL (0-40) Non-HDL Cholesterol Calculated 135 mg/dL (0-129) HDL Cholesterol 77 mg/dL (40-60) Cholesterol/HDL Ratio 2.8 Laboratory Tests Test 07/21/20 16:00 07/22/20 04:55 Troponin I Quantitative < 0.017 ng/mL (0.000-0.055) White Blood Count 7.8 x10^3/uL (4.0-11.0) Red Blood Count 3.87 x10^6/uL (3.50-5.40) Hemoglobin 11.5 g/dL (12.0-15.5) Hematocrit 34.3 % (36.0-47.0) Mean Corpuscular Volume 89 fL (79-100) Mean Corpuscular Hemoglobin 30 pg (25-35) Mean Corpuscular Hemoglobin Concent 34 g/dL (31-37) Red Cell Distribution Width 15.0 % (11.5-14.5) Platelet Count 278 x10^3/uL (140-400) Sodium Level 140 mmol/L (136-145) Potassium Level 3.5 mmol/L (3.5-5.1) Chloride Level 103 mmol/L (98-107) Carbon Dioxide Level 27 mmol/L (21-32) Anion Gap 10 (6-14) Blood Urea Nitrogen 7 mg/dL (7-20) Creatinine 0.7 mg/dL (0.6-1.0) Estimated GFR (Cockcroft-Gault) 83.2 BUN/Creatinine Ratio 10 (6-20) Glucose Level 114 mg/dL (70-99) Calcium Level 8.9 mg/dL (8.5-10.1) Magnesium Level 1.9 mg/dL (1.8-2.4) Total Bilirubin 0.3 mg/dL (0.2-1.0) Aspartate Amino Transf (AST/SGOT) 12 U/L (15-37) Alanine Aminotransferase (ALT/SGPT) 20 U/L (14-59) Alkaline Phosphatase 74 U/L (46-116) Total Protein 6.6 g/dL (6.4-8.2) Albumin 3.1 g/dL (3.4-5.0) Albumin/Globulin Ratio 0.9 (1.0-1.7) Triglycerides Level 72 mg/dL (0-150) Cholesterol Level 212 mg/dL (0-200) LDL Cholesterol, Calculated 121 mg/dL (0-100) VLDL Cholesterol, Calculated 14 mg/dL (0-40) Non-HDL Cholesterol Calculated 135 mg/dL (0-129) HDL Cholesterol 77 mg/dL (40-60) Cholesterol/HDL Ratio 2.8 Medications Current Medications Info (FLU VACCINE SCREEN per RX) 1 each PRN DAILY PRN SEE COMMENTS; Start 07/20/20 at 02:45; Status Cancel Propofol 100 ml @ 1.253 mls/ hr CONT PRN IV SEE I/O RECORD Last administered on 07/20/20at 04:13; Start 07/20/20 at 03:15; Stop 07/20/20 at 20:18; Status DC Enoxaparin Sodium (Lovenox 40mg Syringe) 40 mg Q24H SQ Last administered on 07/21/20at 14:08; Start 07/20/20 at 14:00 Famotidine (Pepcid Vial) 20 mg BID IVP Last administered on 07/21/20at 08:51; Start 07/20/20 at 21:00; Stop 07/21/20 at 12:00; Status DC Amoxicillin/ Clavulanate Potassium (Augmentin 875/ 125mg) 1 tab BID PO Last administered on 07/22/20at 08:19; Start 07/20/20 at 18:00 Albuterol/ Ipratropium (Duoneb) 3 ml RTQID NEB Last administered on 07/22/20at 11:10; Start 07/20/20 at 16:00 Iohexol (Omnipaque 350 Mg/ml) 100 ml 1X ONCE IV Last administered on 07/20/20at 14:15; Start 07/20/20 at 14:15; Stop 07/20/20 at 14:16; Status DC Info (CONTRAST GIVEN -- Rx MONITORING) 1 each PRN DAILY PRN MC SEE COMMENTS; Start 07/20/20 at 14:15; Stop 07/22/20 at 14:14; Status DC Influenza Virus Vaccine Quadrival (Fluzone Quad [id number] Syringe) 0.5 ml ONCE ONCE VAX IM ; Start 07/22/20 at 09:00; Stop 07/22/20 at 09:02; Status DC Lactobacillus Rhamnosus (Culturelle) 1 cap BID PO Last administered on 07/22/20at 08:20; Start 07/21/20 at 09:00 Famotidine (Pepcid) 20 mg BID PO Last administered on 07/22/20at 08:19; Start 07/21/20 at 21:00 Acetaminophen (Tylenol) 650 mg PRN Q4HRS PRN PO PAIN Last administered on 07/22/20at 08:19; Start 07/21/20 at 11:00 Nicotine (Nicoderm Cq 14mg) 1 patch PRN DAILY PRN TD SMOKING CESSATION; Start 07/21/20 at 14:30 Amlodipine Besylate (Norvasc) 5 mg 1X ONCE PO Last administered on 07/21/20at 19:51; Start 07/21/20 at 19:45; Stop 07/21/20 at 19:46; Status DC Nitroglycerin (Nitro-Bid Oint) 1.5 inch Q6HRS TP Last administered on 07/22/20at 05:24; Start 07/22/20 at 01:15 Amlodipine Besylate (Norvasc) 5 mg DAILY PO Last administered on 07/22/20at 11:12; Start 07/22/20 at 11:00 Vitals/I & O Vital Sign - Last 24 Hours 07/21/20 07/21/20 07/21/20 07/21/20 15:00 15:57 16:13 19:19 Temp 98.5 98.4 98.5 98.4 Pulse 78 78 Resp 21 18 B/P (MAP) 196/83 (120) 181/77 (111) 195/81 (119) Pulse Ox 95 94 95 O2 Delivery Room Air Room Air Room Air 07/21/20 07/21/20 07/21/20 07/21/20 19:24 19:51 20:28 23:44 Temp 97.9 97.9 Pulse 78 76 Resp 18 B/P (MAP) 195/81 133/76 (95) Pulse Ox 97 95 O2 Delivery Room Air Room Air 07/22/20 07/22/20 07/22/20 07/22/20 01:18 03:47 05:24 07:00 Temp 98.4 98.3 98.4 98.3 Pulse 76 89 89 78 Resp 18 20 B/P (MAP) 133/76 112/74 (87) 112/74 176/80 (112) Pulse Ox 94 96 O2 Delivery Room Air 07/22/20 07/22/20 07/22/20 07/22/20 07:56 08:00 11:00 11:11 Temp 98.2 98.2 Pulse 80 Resp 21 B/P (MAP) 189/84 (119) Pulse Ox 97 97 97 O2 Delivery Room Air Room Air Room Air Room Air 07/22/20 07/22/20 11:12 12:04 Pulse 71 B/P (MAP) 189/84 177/81 (113) Intake and Output 07/21/20 07/21/20 07/22/20 15:00 23:00 07:00 Intake Total 200 ml 250 ml Output Total 800 ml Balance -600 ml 250 ml Justifications for Admission Other Justification SHARYN ATWOOD MD Jul 22, 2020 14:52
[2020-07-22] MEDS: ENOXAPARIN 40 MG/0.4 ML SYRINGE. SQ SCH (15:04)
[2020-07-22] MEDS ORDERED: ZOLPIDEM 5 MG TABLET. PO PRN (15:45)
--- NOTE | 2020-07-22 15:48 | CARD ---
MR#: [id number] Date of Study: 07/22/2020 Ordering Physician: KRISTOPHER MEEK, Referring Physician: KRISTOPHER MEEK, Tech: Hien Johnson APPROVED REPORT EXAM: Two-dimensional and M-mode echocardiogram with Doppler and color Doppler. Other Information Quality : AverageHR: 96bpm INDICATION Syncope Episode of not responding 2D DIMENSIONS Left Atrium(2D)3.7 (1.6-4.0cm)IVSd1.0 (0.7-1.1cm) Aortic Root(2D)3.2 (2.0-3.7cm)LVDd4.9 (3.9-5.9cm) LVOT Diameter2.1 (1.8-2.4cm)PWd0.9 (0.7-1.1cm) LVDs3.1 (2.5-4.0cm)FS (%) 37.0 % SV76.5 ml Aortic Valve AoV Peak Clifford.131.2cm/sAoV VTI33.8cm AO Peak GR.6.9mmHgLVOT VTI 18.80cm AO Mean GR.6mmHg Mitral Valve MV E Tsxkgpqd18.8cm/sMV E Peak Gr.5mmHg MV DECEL [id number] A Eucirsnt576.0cm/s MV E Mean Gr.2mmHgE/A Ratio0.6 TDI Lateral E' P. V5.34cm/sMedial E' P. V9.33cm/s E/Lateral E'13.6E/Medial E'7.8 Tricuspid Valve TR P. Shyyprou748mm/sRAP MUHEVJIS1unHp TR Peak Gr.97doHnOHXM48gzNg Pulmonary Vein S1 Sztueicb22.6cm/sS2 Mijuceok58.82cm/s D2 Ysktjciv83.8cm/sPVa [id number] LEFT VENTRICLE The left ventricle is normal size. There is normal left ventricular wall thickness. The left ventricu lar systolic function is normal and the ejection fraction is within normal range. The Ejection Fracti on is 55-60%. There is normal LV segmental wall motion. Transmitral Doppler flow pattern is Grade I-a bnormal relaxation pattern. RIGHT VENTRICLE The right ventricle is normal size. There is normal right ventricular wall thickness. The right ventr icular systolic function is normal. ATRIA The left atrium size is normal. The right atrium size is normal. The interatrial septum is intact wit h no evidence for an atrial septal defect or patent foramen ovale as noted on 2-D or Doppler imaging. AORTIC VALVE The aortic valve is normal in structure and function. Doppler and Color Flow revealed no significant aortic regurgitation. Calculated aortic valve area is 1.86 cm2 with maximum pressure gradient of 10 m mHg and mean pressure gradient of 6 mmHg. There is no significant aortic valvular stenosis. MITRAL VALVE The mitral valve is normal in structure and function. There is no evidence of mitral valve prolapse. There is no mitral valve stenosis. Doppler and Color-flow revealed trace mitral regurgitation. TRICUSPID VALVE The tricuspid valve is normal in structure and function. Doppler and Color Flow revealed trace tricus pid regurgitation with an estimated PAP of 41 mmHg. There is no tricuspid valve stenosis. PULMONIC VALVE The pulmonic valve is not well visualized. Doppler and Color Flow revealed trace pulmonic valvular re gurgitation. GREAT VESSELS The aortic root is normal in size. The IVC is normal in size and collapses >50% with inspiration. PERICARDIAL EFFUSION There is no evidence of significant pericardial effusion. Critical Notification Critical Value: No <Conclusion> The left ventricle is normal size. The left ventricular systolic function is normal and the ejection fraction is within normal range. The Ejection Fraction is 55-60%. Doppler and Color Flow revealed no significant aortic regurgitation. There is no significant aortic valvular stenosis. Doppler and Color-flow revealed trace mitral regurgitation. Doppler and Color Flow revealed trace tricuspid regurgitation with an estimated PAP of 41 mmHg. Signed by : Kristopher Meek MD Electronically Approved : 07/22/2020 15:47:54
[2020-07-23 03:15] VITALS: BP 130/78
[2020-07-23] MEDS: NITROGLYCERIN OINT 1 GM PACKET. TP SCH (05:12)
[2020-07-23] MEDS: ACETAMINOPHEN 325 MG TABLET. PO PRN (05:12)
[2020-07-23 05:33] LABS: CALCIUM 9.2 mg/dL (8.5-10.1); CREATININE 0.6 mg/dL (0.6-1.0); GFR 99.4; POTASSIUM 3.7 mmol/L (3.5-5.1)
[2020-07-23 07:30] VITALS: BP 172/82
[2020-07-23] MEDS: LACTOBACILLUS RHAMNOSUS GG 1 CAPSULE. PO SCH (08:03)
[2020-07-23] MEDS: AMOXICILLIN/K CLAV 875/125MG TABLET. PO SCH (08:03)
[2020-07-23] MEDS: amLODIPine BESYLATE 5 MG TABLET PO SCH (08:04)
[2020-07-23] MEDS: ENOXAPARIN 40 MG/0.4 ML SYRINGE. SQ SCH (08:04)
[2020-07-23] MEDS: FAMOTIDINE 20 MG TABLET. PO SCH (08:04)
[2020-07-23] MEDS: IPRATRPIUM/ALBUTEROL 0.5/2.5MG 3 ML NEBU. NEB SCH ×2 (08:10→12:00)
[2020-07-23] MEDS ORDERED: BUPIVACAINE MPF 0.25% 10 ML VIAL. IJ ONE (09:30)
[2020-07-23] MEDS ORDERED: methylPREDNISolone ACETATE 40 MG/ML VIAL. INJ ONE (09:30)
--- NOTE | 2020-07-23 09:47 | CONS ---
DATE OF CONSULTATION: 07/23/2020 ATTENDING PHYSICIAN: Juliano Richardson MD REASON FOR CONSULTATION: The patient was seen at the request of Dr. Richardson for rehab evaluation. NO DICTATION FURTHER JORGE OKEEFE MD DR: SUE/charlene JOB#: [id number] / [id number]
--- NOTE | 2020-07-23 10:25 | CONS ---
DATE OF CONSULTATION: 07/23/2020 ATTENDING PHYSICIAN: Juliano Richardson MD REASON FOR CONSULTATION: The patient was seen at the request of Dr. Richardson for right knee joint pain and stiffness and swelling. 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 The patient was admitted on 07/20/2020 through the Emergency Room at [facility] after she was found unresponsive on the kitchen floor. The patient was noted with blood sugar of 125. The patient was given Narcan without any improvement with her symptoms. She was found unresponsive by head neck surgeon and oxygen saturation in the mid 80s. She was breathing spontaneously, but had shallow respirations. Maryanne coma score was 3 on arrival. No response to noxious stimuli and also did not have gag reflex. The patient was found with pinpoint, but equally responding pupils. She required intubation and started on mechanical ventilation. Lab report revealed a normochromic normocytic anemia with normal white cell count and platelet count. Chemistry was unremarkable except blood sugar was 117. Blood gasses revealed pH of 7.30, pCO2 of 54, pO2 of 329, bicarbonate 26, oxygen saturation was 100% on pAO2 of 90%. Urinalysis showed large amount of rbc's, trace leukocyte esterase, 11-20 wbc's, moderate amount of bacteria. Her tox screen was positive for benzodiazepine. The patient, since admission to [facility], was extubated and she is being followed up by Cardiology and Pulmonary. The patient denies any chest pain or shortness of breath. The patient had CT scan of cervical spine, which revealed multilevel degenerative disk disease and degenerative joint disease. She denies any significant neck pain. She admits occasional left shoulder area discomfort and lower back discomfort. She admits pain, swelling and occasional giving up sensation of her right knee and she admits some stiffness in her left knee. She lives at home, had one step to enter the house. She did not use any assistive devices prior to the present hospitalization. PHYSICAL EXAMINATION: On physical examination today revealed a middle-aged female. She is alert, oriented to time, place, person and circumstance and follows commands appropriately, moves all 4 extremities voluntarily where she had 4+/5 grade muscle strength and deep tendon reflexes are brisk bilaterally. She had pain free and full range of motion of cervical spine and all four extremity joints. She had crepitus on range of motion of her knee joints with mild right knee joint effusion and a small Barajas's cyst, right knee. The patient had equal perception of touch and pinprick sensation bilaterally. She is independent with her mobility and most of the aspects of her self-care. No significant tenderness to palpation over cervical, thoracic or lumbar spine or both shoulder area. ASSESSMENT: A middle-aged female with a recent acute respiratory failure, improved; degenerative joint disease of both knees with pain, right knee; degenerative joint disease and degenerative disk disease changes in cervical spine without any significant neck pain, lower back pain. RECOMMENDATIONS: At her request, I have injected painful right knee joint under aseptic skin technique after skin preparation using alcohol swab with 40 mg per 1 mL of Depo-Medrol 1 mL solution mixed with 2 mL of 0.25% Marcaine solution 0.25%, and she tolerated the procedures satisfactorily without any side effects. I have instructed her in isometric strengthening exercise to her lower extremity muscle groups. She was advised to keep an eye on giving out sensation of her knees and if keep on happening without any significant pain, she may need an MRI scan of her knee to make sure she does not have any meniscus damage. Dr. Richardson, I appreciate asking me to participate in the care of this interesting patient. I will be glad to see her for followup on as needed basis. JORGE OKEEFE MD DR: SUE/charlene JOB#: [id number] / [id number]
--- NOTE | 2020-07-23 11:01 | PDOC ---
DMITRY AUGUST SEAT NAILER 07/23/20 1101: CARDIO Progress Notes Date and Time Date of Service 07/23/20 Time of Evaluation 1040 Subjective Subjective: No Chest Pain, No shortness of breath, No Palpitations Vitals Vitals Vital Signs Date Time Temp Pulse Resp B/P (MAP) Pulse Ox O2 Delivery O2 Flow Rate FiO2 07/23/20 08:10 98 Room Air 07/23/20 08:04 77 172/88 07/23/20 07:30 98.1 18 98.1 Weight Weight [ ] Input and Output Intake and Output Intake and Output 07/23/20 07:00 Intake Total 200 ml Output Total 1 ml Balance 199 ml Intake Oral 200 ml Urine/Stool Mix 1 ml Laboratory Labs Laboratory Tests Test 07/23/20 04:24 Sodium Level 141 mmol/L (136-145) Potassium Level 3.7 mmol/L (3.5-5.1) Chloride Level 105 mmol/L (98-107) Carbon Dioxide Level 27 mmol/L (21-32) Anion Gap 9 (6-14) Blood Urea Nitrogen 8 mg/dL (7-20) Creatinine 0.6 mg/dL (0.6-1.0) Estimated GFR (Cockcroft-Gault) 99.4 Glucose Level 110 mg/dL (70-99) Calcium Level 9.2 mg/dL (8.5-10.1) Physical Exam HEENT: Neck Supple W Full Motion Chest: Symmetric LUNGS: Clear to Auscultation Heart: RRR Abdomen: Soft N/T Extremities: No Edema Neurology: alert, oriented, follow commands Assessment Assessment 1. Acute hypoxemic respiratory failure; s/p extubation. 2. Syncope, unresponsiveness; Now A & O x3. No ischemic EKG changes and no arrhythmias. No acute event on tele. Echo with preserved LV systolic function. No cardiac anomalies identified. 3. Dyslipidemia Recommendations Outpatient event monitor arranged Follow up in our office with Dr. Atwood 09/13/20 at 2:45pm Okay to discharge from a CV standpoint. Consider outpatient ischemic evaluation Justicifation of Admission Dx: Justifications for Admission: Justification of Admission Dx: N/A SHARYN ATWOOD MD 07/23/20 1613: CARDIO Progress Notes Assessment Assessment Patient seen and examined Acute hypoxemic respiratory failure; s/p extubation. Syncope, unresponsiveness; Now A & O x3. No ischemic EKG changes and no arrhythmias. No acute event on tele. Echo with preserved LV systolic function. No cardiac anomalies identified. Continue present medications. Outpatient monitor and office follow-up. Dyslipidemia DMITRY AUGUST APRN Jul 23, 2020 11:01 SHARYN ATWOOD MD Jul 23, 2020 16:13
[2020-07-23] MEDS ORDERED: AMLO10TA8 PO (11:17)
--- NOTE | 2020-07-23 11:20 | SNU/HH DC ---
DISCHARGE WITH HOME HEALTH DISCHARGE INFORMATION: Discharge Date: Jul 23, 2020 Final Diagnosis: altered mental status acute hypoxic resp. failure hypertension Condition on Discharge: Stable CODE STATUS: Code Status: Full HOME HEALTH: Face to Face: I certify this patient is under my care and that I, or a nurse practitioner or physician's assistant professor of chemistry working with me, had a face to face encounter that meets the physician face to face encounter requirements with this patient on 2019 Medical Complications: Other Fpc For: Assess Cardiopulm Status RN For Eval/Treatment: Yes Physical Therapy For: Evalulation/Treatment Occupational Therapy For: Evaluation/Treatment Pt Meets Homebound Status: Extreme weakness w/ amb. POST DISCHARGE ORDERS: Activity Instructions for Disc: Resume previous activity DIET AFTER DISCHARGE: Cardiac CERTIFICATION STATEMENT: Certification Statement: Certification Statement: Based on the above finding, I certify that this patient is confined to the home and needs intermittent fdc care, physical therapy and/or speech therapy, or continues to need occupational therapy.~ This patient is under my care, and I have initiated the establishment of the plan of care.~ This patient will be followed by myself or a community physician who will periodically review the plan of care. Home Meds Active Scripts Amlodipine Besylate (AMLODIPINE BESYLATE) 10 Mg Tablet, 10 MG PO DAILY for htn for 30 Days, #30 TAB 5 Refills Prov:KAREEM FUENTES MD 07/23/20 KAREEM FUENTES MD Jul 23, 2020 11:20
[2020-07-23 12:08] VITALS: BP 155/71
[2020-07-23 12:13] VITALS: BP 164/73
[2020-07-23 12:14] VITALS: BP 179/78
--- NOTE | 2020-07-23 12:45 | NUR ---
SS following up with discharge planning. SS reviewed pt chart and discussed with pt RN. Pt is currently on room air. Discharge orders received for home healthcare. SS met with pt and discussed discharge planning and home healthcare. Pt agreeable to home healthcare with no preference of company. SS phoned and faxed discharge orders and referral to [facility], ; fax [phone]. SS will continue to follow for discharge planning.
--- NOTE | 2020-07-23 12:56 | RAD ---
EXAM: Bilateral knees, standing view. HISTORY: Pain. COMPARISON: 07/21/2020 FINDINGS: A standing frontal view both knees is obtained. There is medial greater than lateral compartment joint space narrowing of the right knee. There is no fracture, dislocation or subluxation. No lytic or sclerotic osseous lesion is seen. IMPRESSION: Mild medial compartment predominant osteoarthritis of the right knee. Electronically signed by: Mara Garcia MD (07/23/2020 12:53 PM) [id number]
--- NOTE | 2020-07-23 13:26 | DS ---
DATE OF DISCHARGE: 07/23/2020 HOSPITAL COURSE: The patient is a 70-year-old female patient, who presented to the Emergency Room of [facility] unconscious. She was found unresponsive on the floor of her kitchen by her granddaughter. Her blood sugar was 125 mg. Prior to arrival to the Emergency Room, the EMS started an IV line and was given Narcan 2 mg twice without any improvement. Also, her oxygen was only 80% and was breathing spontaneously, but has a shallow respiration. Her Maryanne coma scale was 3 on arrival and therefore, the patient was intubated to protect her airways and was transferred to [facility] ICU where she was successfully extubated next day. The patient does not recall circumstances of her loss of consciousness. Her toxic screen was positive for benzodiazepines. She was seen in consultation by the neurologist, machine feller as well as airbrush artist. There was Dr. Dickson stated that there is no evidence of neurological cause of this syncope with prolonged loss of consciousness. He recommended further cardiac workup. She did complain of the pain in her right knee joint for which she was seen Dr. Henderson and he has injected her right knee joint and the airbrush artist recommended event monitoring. It was arranged and to follow with Dr. Bains on 09/13/2020. The patient will be discharged home with home health. PHYSICAL EXAMINATION: GENERAL: When I saw her this morning, she looked well and was clearly in no apparent respiratory distress. No pallor, jaundice, cyanosis or thyromegaly. No jugular venous distention. No lower limb edema. VITAL SIGNS: Her heart rate was 77, blood pressure was 172/82, temperature was 98.1, respiratory rate was 18 and oxygen saturation was 98%. HEAD, EYES, EARS, NOSE AND THROAT: Showed normocephalic, atraumatic. NECK: Supple. HEART: Showed normal first and second heart sounds. No gallop, rub or murmur. CHEST: Clear to auscultation. No crepitation or rhonchi. ABDOMEN: Distended, soft, nontender. NEUROLOGIC: She was awake, alert, responding appropriately. All cranial nerves intact. EXTREMITIES: She moves extremities without difficulty. We checked her orthostatics and there is no evidence of postural hypertension. DISCHARGE INSTRUCTIONS: The patient will be discharged home on amlodipine 10 mg once a day and she will have an event monitor. Will follow with Dr. Bains as an outpatient. KAREEM FUENTES MD DR: CLIVE/charlene JOB#: [id number] / [id number]
--- NOTE | 2020-07-23 13:53 | NUR ---
Discharge Note: OVIDIO MAGALLANES [facility] Discharge instructions and discharge home medications reviewed with Patient and a copy given. All questions have been answered and understanding verbalized. The following instructions and handouts were given: Amlodipine Discontinued lines and drains: Peripheral IV intact. Patient discharged to Home w/services with Family Member via Wheelchair
== END 2020-07-23 13:54 | disposition home health service (06) | DRG 208 ==
LOC: 1 WEST ICU 02:16 → 2 SOUTH 20:00
PROVIDERS: ADMIT Internal Medicine; ATTEND Internal Medicine
PROC: 5A1935Z Respiratory Ventilation, Less than 24 Consecutive Hours (ICD-10-PCS; principal; 2020-07-20)
PROC: 0BH17EZ Insertion of Endotracheal Airway into Trachea, Via Natural or Artificial Opening (ICD-10-PCS; 2020-07-20)
DX: J96.01 Acute respiratory failure with hypoxia (principal); S06.0X9A Concussion with loss of consciousness of unspecified duration, initial encounter; D64.9 Anemia, unspecified; E78.5 Hyperlipidemia, unspecified; M17.0 Bilateral primary osteoarthritis of knee; M43.12 Spondylolisthesis, cervical region; M48.02 Spinal stenosis, cervical region; M50.30 Other cervical disc degeneration, unspecified cervical region; Z82.49 Family history of ischemic heart disease and other diseases of the circulatory system; W18.39XA Other fall on same level, initial encounter; Y93.89 Activity, other specified; Y92.89 Other specified places as the place of occurrence of the external cause; Y99.8 Other external cause status
CPT/HCPCS: 36415; 36600; 71045; 71275; 73562; 73565; 80048; 80053; 80061; 82805; 83735; 84484; 85025; 85027; 93306; 94003; 94640; 94760; J1030; J1650; J2704; J3490; Q9967; 92610-GN; G0378